=== PATIENT | female | born 1975 | race Caucasian/White ===

== ENCOUNTER → 2020-07-23 | Outpatient (CLI) | payer OTHER ==
--- NOTE | 2020-07-24 16:50 | RAD ---
DATE: 07/23/2020 EXAM: DIGITAL SCREEN BILAT W/CAD HISTORY: Routine screening. COMPARISON: Bilateral mammogram 11/17/2019 and prior years, [facility]. CAD was utilized. FINDINGS: The breast parenchyma is heterogeneously dense, which could reduce sensitivity of mammography. There are no dominant masses, suspicious microcalcifications or evidence of architectural distortion. Left axillary lymph node is stable compared to 2017. IMPRESSION: No mammographic evidence of malignancy. Recommend routine mammogram screening. BI-RADS CATEGORY: 2 BENIGN FINDING RECOMMENDED FOLLOW-UP: 12M 12 MONTH FOLLOW-UP PQRS compliance statement: Patient information was entered into a reminder system with a target due date for the next mammogram. Mammography is a sensitive method for finding small breast cancers, but it does not detect them all and is not a substitute for careful clinical examination. A negative mammogram does not negate a clinically suspicious finding and should not result in delay in biopsying a clinically suspicious abnormality. "Our facility is accredited by the [employer] Mammography [employer]."
== END ==
LOC: MAMMO 09:12
PROVIDERS: ATTEND Family Medicine
DX: Z12.31 Encounter for screening mammogram for malignant neoplasm of breast (principal)
CPT/HCPCS: 77067

== ENCOUNTER → 2021-07-24 | Outpatient (CLI) | payer OTHER ==
--- NOTE | 2021-07-24 14:38 | RAD ---
INDICATION: 46 years of age asymptomatic female patient presents for screening mammography. TECHNIQUE: Bilateral full field craniocaudal and mediolateral oblique images were obtained using dig ital technique and also analyzed with computer-aided detection software. COMPARISON: Prior mammographic imaging dating back to 07/22/2016. BREAST COMPOSITION: Category C: The breast tissue is heterogeneously dense, which could obscure detec tion of small masses. FINDINGS: There is a 6 mm focal asymmetry in the slightly upper outer left breast deep posterior third approxim ately 10 cm from the nipple. No suspicious masses, microcalcifications or architectural distortion is present to suggest malignanc y in the left breast. The visualized axillae are unremarkable. IMPRESSION: Right breast focal asymmetry, findings for which additional imaging is advised. RECOMMENDATION: The patient will be contacted to return for additional imaging and a supplemental rep ort will follow. Recommend spot compression right mammogram with ultrasound if indicated. BIRADS 0: INCOMPLETE - NEED ADDITIONAL IMAGING EVALUATION AND/OR PRIOR MAMMOGRAMS FOR COMPARISON. This study was interpreted with the benefit of Computerized Aided Detection (CAD). Your patient's mammogram demonstrates that she has dense breast tissue (breast density category C or D), which could hide abnormalities, and if she has other risk factors for breast cancer that have bee n identified, she might benefit from supplemental screening tests that may be suggested by you as her ordering physician. Dense breast tissue, in and of itself, is a relatively common condition. Therefo re, this information is not provided to cause undue concern, but rather to raise your awareness and t o promote discussion with your patient regarding the presence of other risk factors, in addition to d ense breast tissue. Your patient's mammography results will be sent to her. Patient information is entered into the reminder system with a target due date for the next screening mammogram. Mammography is the most sensitive method for finding small breast cancers, but it does not detect the m all and is not a substitute for careful clinical examination. A negative mammogram does not negate a clinically suspicious finding and should not result in delay in biopsying a clinically suspicious a bnormality. "Our facility is accredited by the [employer] Mammography [employer]." Electronically signed by: Jean Littlejohn MD (07/24/2021 2:35 PM) [id number] BIRADS 0-6
== END ==
LOC: MAMMO 13:12
PROVIDERS: ATTEND Family Medicine
DX: Z12.31 Encounter for screening mammogram for malignant neoplasm of breast (principal)
CPT/HCPCS: 77067

== ENCOUNTER → 2021-08-07 | Outpatient (CLI) | payer OTHER ==
--- NOTE | 2021-08-07 16:18 | RAD ---
DATE: 08/07/2021 EXAM: US BREAST RT, MG DIAGNOSTICUNILAT MAMMO HISTORY: Recalled from screening mammogram for a focal asymmetry in the upper outer right breast post erior depth. COMPARISON: Screening mammogram 07/24/2021 This study was interpreted with the benefit of Computerized Aided Detection (CAD). Breast Density: SCATTERED The breast parenchyma shows scattered fibroglandular densities. Breast pare nchyma level B. FINDINGS: The 4 mm focal asymmetry persists on spot compression views. Ultrasound of the right breast was performed from 9-12 o'clock. At 9:00 7 cm from the nipple, there i s a 5 x 2 x 3 mm ovoid circumscribed hypoechoic mass. This is parallel in orientation with no vascula rity and no posterior acoustic shadowing, likely a minimally complicated cyst. No axillary lymphadeno harsh. IMPRESSION: 5 mm probably benign hypoechoic mass at 9:00 7 cm from the nipple, likely corresponding w ith the mammographic abnormality. This may be a minimally complicated cyst. Recommend 6 month follow- up ultrasound and mammogram of the right breast to ensure stability. BI-RADS CATEGORY: 3 PROBABLY BENIGN FINDING(S)-SHORT INTERVAL FOLLOW-UP SUGGESTED RECOMMENDED FOLLOW-UP: Short interval right breast mammogram and ultrasound in 6 months. PQRS compliance statement: Patient information was entered into a reminder system with a target due d ate for the next mammogram. Mammography is a sensitive method for finding small breast cancers, but it does not detect them all a nd is not a substitute for careful clinical examination. A negative mammogram does not negate a clin ically suspicious finding and should not result in delay in biopsying a clinically suspicious abnorma lity. "Our facility is accredited by the [employer] Mammography [employer]." Electronically signed by: Rebecca Allen MD (08/07/2021 4:16 PM) [id number]
== END ==
LOC: MAMMO 11:36
PROVIDERS: ATTEND Family Medicine
DX: N63.11 Unspecified lump in the right breast, upper outer quadrant (principal)
CPT/HCPCS: 76641; 77065